=== PATIENT | male | born 1980 | race African-American/Black ===

== ENCOUNTER 2016-09-19 01:02 | Emergency (ER) | payer SELFPAY ==
[2016-09-19 01:13] VITALS: BP 130/76; BMI 39.2
--- NOTE | 2016-09-19 01:39 | DR.GENAD ---
HPI - PCP Primary Care Physician: Ty - HPI Comment HPI Comment: HISTORY BELOW. - Complaint/Symptoms Chief Complaint Doctors Comments: PAIN AND NUMNESS TO FINFERS AND HANDS FOR SEVERAL MONTHS.WORSE TODAY. SYMTOMS NOT RELATED TO COLD. HE USE TO WORK WHERE HE DID LOT OF TYPING. CURRENTLY THIS IS NOT THE CASE. DENIES TRAUMA. Chief Complaint:: " Its been like a couple of weeks i been tring to just wait it for it to go away. Like If i hold my playstation control they go numb. But tonight even if i hold my phone they going numb dont matterif im holding them up or down they go numb. I usually can just shack them and it will go away but will come right back. Sometimes i can move them and i will have sharp pains the left one is worst than the right one. - Nurses notes reviewed Nurses Notes Review: Yes - Source History Provided: Patient - Mode of Arrival Mode of Arrival: Ambulatory - Timing Onset of Chief Complaint: 09/05/16 Came on: Gradually - Duration Duration: Constant Duration: Days - Severity Severity: Moderate PMH - PMH Past Medical History: Yes Past Medical History: Anxiety Past Surgical History: No Surgical History: No History - Family History History of Family Medical Conditions: Yes Family Medical History: [place], Coronary Artery Disease, Hypertension - Social History Type of Tobacco Use: Cigarettes Alcohol Use: None Do you use any recreational Drugs:: No Lives With: Family Lives Where: Home - infectious screening Have you traveled outside the country in the last 6 months?: No ROS - Review of Systems Constitutional: No Symptoms Reported Eyes: No Symptoms Reported ENTM: No Symptoms Reported Respiratoy: No Symptoms Reported Cardiovascular: No Symptoms Reported Gastrointestinal/Abdominal: No Symptoms Reported Genitourinary: No Symptoms Reported Neurological: Numbness (FINGHERS) Musculoskeletal: Joint Swelling Integumentary: No Symptoms Reported Hematologic/Lymphatic: No Symptoms Reported Endocrine: No Symptoms Reported All Other Systems: Reviewed and Negative PE - Vital Signs Vitals: Temperature 98.6 F Pulse Rate 86 Respiratory Rate 18 Blood Pressure [Left Arm] 140/91 Blood Pressure 130/76 O2 Sat by Pulse Oximetry 98 - General Limitations: No Limitations General Appearance: Alert - Head Head Exam: Normal Inspection - Eyes Eye exam: Normal Appearance - ENT ENT Exam: Normal External Ear Exam External Ear Exam: Normal External Inspection TM/Canal Exam: Bilateral Normal Nose Exam: Normal Nose Exam Mouth Exam: Normal Inspection Throat Exam: Normal Inspection - Neck Neck Exam: Normal Inspection - Chest Chest Inspection: Normal Inspection - Respiratory Respiratory Exam: Normal Lung Sounds Bilat Respiratory Exam: Bilateral Clear to Auscultation - Cardiovascular Cardiovascular Exam: Regular Rate, Normal Rhythm, Normal Heart Sounds - Abdominal Exam Abdominal Exam: Normal Bowel Sounds, Soft. negative: Tenderness - Extremities Extremities Exam: Normal Inspection - Back Back Exam: Normal Inspection - Neurologic Neurological Exam: Alert, Oriented X3 - Psychiatric Psychiatric Exam: Normal Affect, Normal Mood - Skin Skin Exam: Erythema MDM - Differential Diagnosis Differential Diagnosis: ARTHRTIS, MUSCULOSKELETAL PAIN Course - Treatment Treatment: SEE ORDERS - Education/Counseling Education/Counseling: Patient, Education Educated On: Diagnosis, Needs for Follow Up - Diagnosis Discharge Problem: Musculoskeletal pain of upper extremity - Discharge Plan Condition: Stable Prescriptions: Ibuprofen [Motrin Tab 800 mg] 800 mg PO Q8H PRN #20 tab PRN Reason: Pain/Inflammation - Follow ups/Referrals Follow ups/Referrals: ЕЛЕНА ZIMMER [Primary Care Provider] - 3 days - Instructions Instructions: Musculoskeletal Pain Additional Instructions: RETURN TO ED IF WORSE.
[2016-09-19] MEDS ORDERED: TORADOL TAB PO ONE ×2 (01:56→02:03)
== END 2016-09-19 02:11 | disposition home or self-care (01) ==
LOC: ER 01:02
DX: M79.1 Myalgia (principal)
CPT/HCPCS: 99282